=== PATIENT | female | born 1955 | race Hispanic/Latino ===

== ENCOUNTER 2019-02-22 08:56 | Day surgery (SDC) | payer MEDICARE ==
[~2019-02-22] VITALS: Ht 157.5 cm; Wt 65.3 kg
[~2019-02-22 08:56] MED LIST: ASPI-555 PO; ATOR-2 PO; BISA5TAB12 PO; CITA10TA7 PO; METF-444 PO; METO25TA6 PO; NAPR-1023 PO; PANT20TA12 PO; SODIUM CHLORIDE 0.9% 1000ML 1,000 ML IV ONE
[2019-02-22 11:58] VITALS: BP 172/83
[2019-02-22 12:38] VITALS: BP 127/68
[2019-02-22 12:43] VITALS: BP 127/63
[2019-02-22 12:48] VITALS: BP 136/67
[2019-02-22 12:53] VITALS: BP 134/67
[2019-02-22 12:58] VITALS: BP 138/68
--- NOTE | 2019-02-22 13:05 | NUR ---
dc pt dc home via w[place], no distress noted. denied any pain or discomforts. accompanied by friend , patient fully awake belongings given to patient , dc instructions reinforced at this time. pt verbalized understanding.
== END 2019-02-22 13:05 | disposition home or self-care (01) ==
LOC: ENDO 08:56 → DAH 08:56 → ENDO 13:05
PROVIDERS: ATTEND Internal Medicine
DX: K29.50 Unspecified chronic gastritis without bleeding (principal); K44.9 Diaphragmatic hernia without obstruction or gangrene; K22.8 Other specified diseases of esophagus; K31.89 Other diseases of stomach and duodenum; K59.04 Chronic idiopathic constipation; K21.0 Gastro-esophageal reflux disease with esophagitis; K57.30 Diverticulosis of large intestine without perforation or abscess without bleeding; K76.0 Fatty (change of) liver, not elsewhere classified; I10 Essential (primary) hypertension; F41.9 Anxiety disorder, unspecified; F32.9 Major depressive disorder, single episode, unspecified; E11.9 Type 2 diabetes mellitus without complications; Z79.82 Long term (current) use of aspirin; Z79.899 Other long term (current) drug therapy; M81.0 Age-related osteoporosis without current pathological fracture; Z90.710 Acquired absence of both cervix and uterus; Z86.010 Personal history of colon polyps
CPT/HCPCS: 43239; 82948 ×2; 88305; A4215; A4221; A4222; A4223; A4606; A4663; J7030